=== PATIENT | male | born 2000 | race Caucasian/White ===

== ENCOUNTER 2025-03-19 08:52 | Emergency (ER) | payer MEDICAID, MEDICARE ==
[~2025-03-19] VITALS: Ht 170.2 cm; Wt 91.6 kg
[~2025-03-19 08:52] MED LIST: IBUP-2029 MT; MAG-55 MT
[2025-03-19 09:12] VITALS: O2SAT 98
[2025-03-19] MEDS ORDERED: LIDO700A30 TP (12:56)
[2025-03-19] MEDS ORDERED: CYCL10TA21 MT (12:56)
[2025-03-19] MEDS ORDERED: IBUP-2029 MT (12:56)
[2025-03-19] MEDS: LIDOCAINE 5% PATCH TOP STA (13:15)
[2025-03-19] MEDS: KETOROLAC 30MG/ML VIAL IM ONE (13:15)
[2025-03-19 13:21] VITALS: BP 118/84; PULSE 78; RESP 17; TEMP 36.5; O2SAT 99
== END 2025-03-19 13:26 | disposition home or self-care (01) ==
LOC: ER 08:52
DX: S39.012A Strain of muscle, fascia and tendon of lower back, initial encounter (principal); G56.02 Carpal tunnel syndrome, left upper limb; Z79.899 Other long term (current) drug therapy
CPT/HCPCS: 99283; 96372; J1885; A6449